=== PATIENT | female | born 1975 | race Caucasian/White ===

== ENCOUNTER → 2019-08-20 | Outpatient (CLI) | payer MEDICAID ==
[~2019-08-20] MED LIST: HYDR-3241 PO; HYDROCO; IBUP-1223 PO; ONDA4TAB13 PO; VICODIN; VICODIN 5/500 PO
[2019-08-20 10:19] LABS: BASOPHILS # (AUTO) 0.05 x10^3/uL (0-0.1); BASOPHILS % (AUTO) 1 % (0-1); EOSINOPHILS % (AUTO) 2 % (1-7); LYMPHOCYTES # (AUTO) 2.15 x10^3/uL (1-3.4); LYMPHOCYTES % (AUTO) 33 % (22-44); MD NO; MEAN CORPUSCULAR HEMOGLOBIN 29.7 pg (27.0-34.8); MEAN CORPUSCULAR HGB CONC 33.1 g/dL (32.4-35.8); MEAN CORPUSCULAR VOLUME 89.7 fL (80-100); MEAN PLATELET VOLUME 7.6 fL (7.4-10.4); MONOCYTES # (AUTO) 0.37 x10^3/uL (0.2-0.8); MONOCYTES % (AUTO) 6 % (2-9); NEUTROPHILS # (AUTO) 3.88 x10^3/uL (1.8-6.8); NEUTROPHILS % (AUTO) 59 % (42-75); PLATELET COUNT 483 x10^3/uL (130-400); RED BLOOD COUNT 4.35 x10^6/uL (3.82-5.3); RED CELL DISTRIBUTION WIDTH 13.6 % (9.6-15.2)
[2019-08-20 10:30] LABS: INTERNATIONAL NORMALIZED RATIO 1.01 (0.93-1.1); PROTHROMBIN TIME 10.7 Seconds (9.6-11.5)
[2019-08-20 10:32] LABS: ALANINE AMINOTRANSFERASE 41 U/L (12-78); ALBUMIN 3.3 g/dL (3.4-5.0); ANION GAP 3 mmol/L (5-15); CHLORIDE 111 mmol/L (98-107)
[2019-08-20 10:34] LABS: ALKALINE PHOSPHATASE 110 U/L (45-117); BILIRUBIN,TOTAL 0.2 mg/dL (0.2-1.0); TOTAL PROTEIN 7.8 g/dL (6.4-8.2)
== END | disposition home or self-care (01) ==
LOC: STAR 09:18
PROVIDERS: ATTEND Obstetrics & Gynecology
DX: Z01.818 Encounter for other preprocedural examination (principal); Z11.59 Encounter for screening for other viral diseases; R10.2 Pelvic and perineal pain; R19.00 Intra-abdominal and pelvic swelling, mass and lump, unspecified site; M41.84 Other forms of scoliosis, thoracic region
CPT/HCPCS: 36415; 71046; 80053; 85025; 85610; 85730; 86304; 93005; U0001

== ENCOUNTER 2019-08-24 07:45 | Observation (INO) | payer MEDICAID ==
[~2019-08-24] VITALS: Ht 166.4 cm; Wt 90.3 kg
[~2019-08-24 07:45] MED LIST changes: +BUPIVACAINE/PF-EPI 0.25% 1:200K ONE; +HEPARIN 1,000 UNITS/ML, 10ML ONE; -HYDROCO; -ONDA4TAB13 PO; -VICODIN; -VICODIN 5/500 PO
[2019-08-24] MEDS ORDERED: LACTATED RINGERS 1,000 ML IV SCH (08:16)
[2019-08-24] MEDS ORDERED: CHLORHEXIDINE 15 ML UDC ONE (08:24)
[2019-08-24] MEDS ORDERED: CEFOTETAN PMX 2GM/50ML 50 ML ONE (08:24)
[2019-08-24] MEDS ORDERED: CHLORHEXIDINE 15 ML UDC MM ONE (08:30)
[2019-08-24] MEDS ORDERED: CEFOTETAN PMX 2GM/50ML 50 ML IV ONE (08:30)
[2019-08-24 08:48] LABS: HCG UR SG 1.023 (1.003-1.030)
[2019-08-24] MEDS ORDERED: FAMOTIDINE 20 MG TABLET PO ONE (11:30)
[2019-08-24] MEDS ORDERED: SCOPOLAMINE 1MG PATCH TD SCH (11:30)
[2019-08-24] MEDS ORDERED: OXYcodone IR 5MG TABLET PO ONE (11:30)
[2019-08-24] MEDS ORDERED: LIDOCAINE-MPF 1%, 2ML ONE (11:30)
[2019-08-24] MEDS ORDERED: ACETAMINOPHEN 500 MG TABLET PO ONE (11:30)
[2019-08-24] MEDS ORDERED: MIDAZOLAM 1 MG/ML, 2ML ONE (11:50)
[2019-08-24] MEDS ORDERED: FENTANYL PF 250 MCG/5ML ONE (11:50)
[2019-08-24] MEDS ORDERED: LIDOCAINE-MPF 1%, 2ML INFIL ONE (12:00)
[2019-08-24] MEDS ORDERED: INDOCYANINE GREEN 25 MG VIAL ONE (12:21)
[2019-08-24] MEDS ORDERED: EPHEDRINE 50 MG/ML, 1ML ONE ×2 (12:44→13:23)
[2019-08-24] MEDS ORDERED: KETOROLAC 30 MG/1 ML ONE ×2 (12:44→13:23)
[2019-08-24] MEDS ORDERED: GLYCOPYRROLATE 0.2MG/1ML, 5ML ONE (12:44)
[2019-08-24] MEDS ORDERED: ONDANSETRON 2MG/ML, 2ML ONE ×2 (12:44→13:23)
[2019-08-24] MEDS ORDERED: DEXAMETHASONE 4 MG/ML, 1ML ONE ×2 (13:22)
[2019-08-24] MEDS ORDERED: ROCURONIUM 10MG/ML,5ML ONE ×2 (13:23)
[2019-08-24] MEDS ORDERED: PROPOFOL 10 MG/ML, 20ML ONE ×2 (13:23)
[2019-08-24] MEDS ORDERED: CEFAZOLIN 1,000 MG ONE ×2 (16:44)
[2019-08-24] MEDS ORDERED: METRONIDAZOLE PMX 500MG/100ML 100 ML ONE (16:45)
[2019-08-24] MEDS ORDERED: ONDANSETRON 2MG/ML, 2ML IVPush PRN ×2 (17:00→20:30)
[2019-08-24] MEDS ORDERED: MEPERIDINE/PF 25MG/0.5ML IVPush PRN (17:00)
[2019-08-24] MEDS ORDERED: HYDROcodone/APAP 7.5-325MG/15ML UDC PO PRN (17:00)
[2019-08-24] MEDS ORDERED: FENTANYL PF 100 MCG/2ML IV PRN (17:00)
[2019-08-24] MEDS ORDERED: PROMETHAZINE 25 MG/ML, 1ML IVPush PRN (17:00)
[2019-08-24] MEDS ORDERED: FENTANYL PF 100 MCG/2ML ONE (17:46)
[2019-08-24] MEDS ORDERED: NEOSTIGMINE 1 MG/ML, 10ML ONE (19:55)
[2019-08-24] MEDS ORDERED: KETOROLAC 30 MG/1 ML IVPush PRN (20:30)
[2019-08-24] MEDS ORDERED: hydrALAzine 20 MG/ML, 1ML IV PRN ×2 (21:00→23:00)
[2019-08-24] MEDS ORDERED: hydrALAzine 20 MG/ML, 1ML ONE (21:03)
[2019-08-24] MEDS ORDERED: HYDROmorphone 1 MG/ML, 1ML INJ ONE (21:04)
[2019-08-24] MEDS: HYDROmorphone 1 MG/ML, 1ML INJ IVPush PRN ×2 (21:06→21:08)
[2019-08-24] MEDS: LACTATED RINGERS 1,000 ML IV SCH (21:48)
[2019-08-25 00:39] VITALS: BP 152/94
[2019-08-25] MEDS: morphine SULFATE 10 MG/ML, 1ML IVPush PRN ×2 (01:09→09:27)
[2019-08-25] MEDS: LACTATED RINGERS 1,000 ML IV SCH ×2 (05:53→15:39)
[2019-08-25 06:21] LABS: ANION GAP 7 mmol/L (5-15); CHLORIDE 110 mmol/L (98-107); CREATININE 0.83 mg/dL (0.55-1.02)
[2019-08-25 06:28] LABS: BASOPHILS # (AUTO) 0.03 x10^3/uL (0-0.1); BASOPHILS % (AUTO) 0 % (0-1); EOSINOPHILS % (AUTO) 0 % (1-7); LYMPHOCYTES # (AUTO) 1.22 x10^3/uL (1-3.4); LYMPHOCYTES % (AUTO) 15 % (22-44); MD NO; MEAN CORPUSCULAR HEMOGLOBIN 29.5 pg (27.0-34.8); MEAN CORPUSCULAR HGB CONC 32.8 g/dL (32.4-35.8); MEAN CORPUSCULAR VOLUME 89.9 fL (80-100); MEAN PLATELET VOLUME 8.5 fL (7.4-10.4); MONOCYTES # (AUTO) 0.53 x10^3/uL (0.2-0.8); MONOCYTES % (AUTO) 7 % (2-9); NEUTROPHILS % (AUTO) 78 % (42-75); PLATELET COUNT 341 x10^3/uL (130-400); RED BLOOD COUNT 3.73 x10^6/uL (3.82-5.3); RED CELL DISTRIBUTION WIDTH 14.3 % (9.6-15.2)
[2019-08-25 06:44] VITALS: BP 123/79
[2019-08-25 11:51] LABS: MICROSCOPIC INDICATED
[2019-08-25 13:10] VITALS: BP 125/72
[2019-08-25] MEDS: HYDROcodone/APAP 5/325 TABLET PO PRN ×2 (15:40→20:16)
[2019-08-25] MEDS ORDERED: ONDA4TAB13 PO (16:08)
[2019-08-25] MEDS ORDERED: HYDROCO (16:10)
[2019-08-25] MEDS ORDERED: VICODIN (16:11)
[2019-08-25] MEDS ORDERED: VICODIN 5/500 PO (16:13)
== END 2019-08-25 20:45 | disposition home or self-care (01) ==
LOC: OUT 07:45 → ORIP 20:18 → 3WST 21:38
PROVIDERS: ADMIT Obstetrics & Gynecology; ATTEND Obstetrics & Gynecology
DX: D25.9 Leiomyoma of uterus, unspecified (principal); N73.6 Female pelvic peritoneal adhesions (postinfective); N80.1 Endometriosis of ovary; N13.5 Crossing vessel and stricture of ureter without hydronephrosis; N94.6 Dysmenorrhea, unspecified; F17.210 Nicotine dependence, cigarettes, uncomplicated
CPT/HCPCS: 36415; 52332; 58573; 74018; 80048; 81001; 81025; 85025; 86850; 86900; 86923; 87086; 88112; 88305; 88307; 96374; 96375; 96376; C1769; C2617; G0378; J0360; J0690; J1100; J1170; J1885; J2250; J2270; J2405; J2704; J2710; J3010; J3490; J7120; J1644

== ENCOUNTER 2019-10-12 11:22 | Day surgery (SDC) | payer MEDICAID ==
[~2019-10-12] VITALS: Ht 165.1 cm; Wt 89.8 kg
[~2019-10-12 11:22] MED LIST changes: -BUPIVACAINE/PF-EPI 0.25% 1:200K ONE; +FENTANYL PF 250 MCG/5ML ONE; -HEPARIN 1,000 UNITS/ML, 10ML ONE; +HYDROCO; +MIDAZOLAM 1 MG/ML, 2ML ONE; +ONDA4TAB13 PO; +VICODIN; +VICODIN 5/500 PO
[2019-10-12 11:48] VITALS: BP 151/110
[2019-10-12] MEDS ORDERED: none per pt (11:56)
[2019-10-12] MEDS ORDERED: FENTANYL PF 100 MCG/2ML IV PRN (12:00)
[2019-10-12] MEDS ORDERED: HALOPERIDOL 5 MG/ML IV PRN (12:00)
[2019-10-12] MEDS ORDERED: MEPERIDINE/PF 25MG/0.5ML IVPush PRN (12:00)
[2019-10-12] MEDS ORDERED: OXYcodone 5 MG/5 ML ORAL.SOL UDC PO PRN (12:00)
[2019-10-12] MEDS ORDERED: PROMETHAZINE 25 MG/ML, 1ML IVPush PRN (12:00)
[2019-10-12] MEDS ORDERED: DIPHENHYDRAMINE 50 MG/ML, 1ML IVPush PRN (12:00)
[2019-10-12] MEDS ORDERED: HYDROmorphone 1 MG/ML, 1ML INJ IVPush PRN (12:00)
[2019-10-12] MEDS ORDERED: CHLORHEXIDINE 15 ML UDC MM ONE (12:00)
[2019-10-12] MEDS ORDERED: LABETALOL 5MG/ML, 20ML IV PRN (12:00)
[2019-10-12] MEDS ORDERED: hydrALAzine 20 MG/ML, 1ML IV PRN (12:00)
[2019-10-12] MEDS ORDERED: LACTATED RINGERS 1,000 ML IV SCH (12:16)
[2019-10-12] MEDS ORDERED: PROPOFOL 10 MG/ML, 20ML ONE (12:47)
[2019-10-12] MEDS ORDERED: DEXAMETHASONE 4 MG/ML, 1ML ONE (12:47)
[2019-10-12] MEDS ORDERED: CEFAZOLIN 1,000 MG ONE (12:47)
[2019-10-12] MEDS ORDERED: ONDANSETRON 2MG/ML, 2ML ONE (12:47)
[2019-10-12] MEDS ORDERED: CEFOTETAN PMX 2GM/50ML 50 ML IV ONE (13:00)
== END 2019-10-12 16:25 | disposition home or self-care (01) ==
LOC: OUT 11:22
PROVIDERS: ATTEND Obstetrics & Gynecology
DX: Z46.6 Encounter for fitting and adjustment of urinary device (principal); Z11.59 Encounter for screening for other viral diseases; I10 Essential (primary) hypertension; F17.210 Nicotine dependence, cigarettes, uncomplicated; Z79.1 Long term (current) use of non-steroidal anti-inflammatories (NSAID); Z88.5 Allergy status to narcotic agent; Z90.710 Acquired absence of both cervix and uterus; Z90.722 Acquired absence of ovaries, bilateral; Z90.79 Acquired absence of other genital organ(s); Z98.890 Other specified postprocedural states; Z80.49 Family history of malignant neoplasm of other genital organs
CPT/HCPCS: 36415; 52310; 87635; J1100; J2250; J2405; J2704; J3010; J3490; J7120; J0690